=== PATIENT | male | born 1995 | race Caucasian/White ===

== ENCOUNTER 2019-04-22 23:16 | Emergency (ER) | payer OTHER ==
[~2019-04-22] VITALS: Ht 182.9 cm; Wt 104.3 kg
[2019-04-22] MEDS ORDERED: ZOFRAN ODT4 MG PO (23:23)
[2019-04-22] MEDS ORDERED: NEXIUM 24HR20 M2 PO (23:23)
[2019-04-22 23:44] LABS: ABSOLUTE EOSINOPHILS 0.4 thou/uL (0.0-0.7); ABSOLUTE LYMPHOCYTES 2.9 thou/uL (0.8-5.3); ABSOLUTE MONOCYTES 0.5 thou/uL (0.0-1.2); ABSOLUTE NEUTROPHILS 5.1 thou/uL (1.6-8.1); BASOPHILS 0.5 %; HEMATOCRIT 44.9 % (42.0-52.0); HEMOGLOBIN 15.8 gm/dL (14.0-18.0); LYMPHOCYTES 32.4 %; MCH 30.7 pg (26.0-34.0); MCHC 35.2 g/dL (28.0-37.0); MCV 87.3 fL (80.0-100.0); MONOCYTES 5.5 %; MPV 8.8 fl. (7.2-11.1); NUCLEATED RBCS 0 /100WBC; PLATELET COUNT* 179 thou/uL (150-400); POLYS 57.6 %; RBC 5.14 mil/uL (4.50-6.00); RDW-CV 13.2 % (10.5-14.5); WBC 8.9 thou/uL (4.0-11.0)
[2019-04-23 00:02] LABS: CALCIUM 9.1 mg/dL (8.5-10.1); CREATININE 1.5 mg/dL (0.6-1.3); POTASSIUM 3.7 mmol/L (3.5-5.1)
[2019-04-23 00:06] LABS: ALBUMIN 4.2 g/dL (3.4-5.0); TOTAL BILIRUBIN 0.5 mg/dL (<0.1-1.0); TOTAL PROTEIN 7.2 g/dL (6.4-8.2)
[2019-04-23] MEDS ORDERED: ZOFRAN ODT4 MG PO (00:21)
[2019-04-23] MEDS ORDERED: HYDROCODON-ACE1 EAC8 PO (00:21)
[2019-04-23 00:30] VITALS: BP 132/74
--- NOTE | 2019-04-23 11:00 | EKG ---
[place] [address] ELECTROCARDIOGRAM REPORT Name: SANCHEZ,ELIEL BRITTON 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 04/23/19 1059 [id number] Collin Cevallos MD, FACC /EPI
== END 2019-04-23 00:30 | disposition home or self-care (01) ==
LOC: M.ERS 23:16
PROVIDERS: Emergency Medicine
DX: R11.2 Nausea with vomiting, unspecified (principal); R19.7 Diarrhea, unspecified